=== PATIENT | male | born 1990 | race African-American/Black ===

== ENCOUNTER 2022-05-08 15:54 | Emergency (ER) | payer OTHER ==
[2022-05-08] MEDS ORDERED: IBUPROFEN 200 MG TAB PO ONE (16:35)
[2022-05-08] MEDS ORDERED: HYDROCODONE/APAP 5/325 MG TAB ONE (16:35)
[2022-05-08] MEDS ORDERED: IBUPROFEN 400 MG TAB ONE (16:35)
[2022-05-08] MEDS ORDERED: AMOX/K CLAV 875 MG TAB ONE (16:35)
[2022-05-08 17:36] VITALS: BP 142/83; TEMP 98.2; O2SAT 94
--- NOTE | 2022-05-20 16:55 | EDPHYS ---
Physician Documentation [facility] Name: Jemal Woody Jr Age: 31 yrs Sex: Male : 1990 Arrival Date: 05/08/2022 Time: 16:02 Bed IW2 Private MD: ED Physician Emre Trevino HPI: 05/08 17:40 This 31 yrs old Black Male presents to ER via Ambulatory with complaints of Toothache. snw 17:40 The patient presents with pain, swelling. The problem is located in the lower right snw third molar. Onset: The symptoms/episode began/occurred acutely. Duration: The symptoms are continuous, and are steadily getting worse. Associated signs and symptoms: The patient has no apparent associated signs or symptoms. Severity of symptoms: At their worst the symptoms were moderate. The patient has experienced a previous episode. The patient has not recently seen a physician. Historical: - Allergies: 16:12 No Known Allergies; kr3 - PMHx: 16:12 None; kr3 - PSHx: 16:12 None; kr3 - Immunization history:: Adult Immunizations not up to date. - Social history:: Smoking status: Reported history of juuling and/or vaping. ROS: 17:37 Constitutional: Negative for fever, chills, and weight loss, Eyes: Negative for injury, snw pain, redness, and discharge, Neck: Negative for injury, pain, and swelling, Cardiovascular: Negative for chest pain, palpitations, and edema, Respiratory: Negative for shortness of breath, cough, wheezing, and pleuritic chest pain, Abdomen/GI: Negative for abdominal pain, nausea, vomiting, diarrhea, and constipation, Back: Negative for injury and pain, : Negative for injury, bleeding, discharge, and swelling, MS/Extremity: Negative for injury and deformity, Skin: Negative for injury, rash, and discoloration, Neuro: Negative for headache, weakness, numbness, tingling, and seizure, Psych: Negative for depression, anxiety, suicide ideation, homicidal ideation, and hallucinations. 17:37 ENT: Positive for dental pain, of the lower right third molar. Exam: 17:36 Constitutional: This is a well developed, well nourished patient who is awake, alert, snw and in no acute distress. Head/Face: Normocephalic, atraumatic. Eyes: Pupils equal round and reactive to light, extra-ocular motions intact. Lids and lashes normal. Conjunctiva and sclera are non-icteric and not injected. Cornea within normal limits. Periorbital areas with no swelling, redness, or edema. ENT: Nares patent. No nasal discharge, no septal abnormalities noted. Oropharynx with no redness, swelling, or masses, exudates, or evidence of obstruction, uvula midline. Mucous membranes moist. scattered dental caries, right lower molar with tenderness, blackened center. Neck: Trachea midline, no thyromegaly or masses palpated, and no cervical lymphadenopathy. Supple, full range of motion without nuchal rigidity, or vertebral point tenderness. No Meningismus. Chest/axilla: Normal chest wall appearance and motion. Nontender with no deformity. No lesions are appreciated. Cardiovascular: Regular rate and rhythm with a normal S1 and S2. No gallops, murmurs, or rubs. Normal PMI, no JVD. No pulse deficits. Respiratory: Lungs have equal breath sounds bilaterally, clear to auscultation and percussion. No rales, rhonchi or wheezes noted. No increased work of breathing, no retractions or nasal flaring. Back: No spinal tenderness. No costovertebral tenderness. Full range of motion. Skin: Warm, dry with normal turgor. Normal color with no rashes, no lesions, and no evidence of cellulitis. MS/ Extremity: Pulses equal, no cyanosis. Neurovascular intact. Full, normal range of motion. Neuro: Awake and alert, GCS 15, oriented to person, place, time, and situation. Cranial nerves II-XII grossly intact. Motor strength 5/5 in all extremities. Sensory grossly intact. Cerebellar exam normal. Normal gait. Psych: Awake, alert, with orientation to person, place and time. Behavior, mood, and affect are within normal limits. Vital Signs: 16:06 BP 142 / 83; Pulse 111; Resp 18; Temp 98.2; Pulse Ox 94% on R/A; Weight 92.99 kg; kr3 Height 6 ft. 2 in. ; Pain 7/10; 16:06 Body Mass Index 26.32 (92.99 kg, 187.96 cm) kr3 16:06 Pain Scale: Adult kr3 MDM: 16:05 Patient medically screened. snw 17:38 Differential diagnosis: dental caries, dental abscess, gingivostomatitis. Data snw reviewed: vital signs, nurses notes. I considered the following discharge prescriptions or medication management in the emergency department Medications were administered in the Emergency Department. See MAR. Counseling: I had a detailed discussion with the patient and/or guardian regarding: the historical points, exam findings, and any diagnostic results supporting the discharge/admit diagnosis, the presence of at least one elevated blood pressure reading (>120/80) during this emergency department visit, the need for outpatient follow up, for definitive care, to return to the emergency department if symptoms worsen or persist or if there are any questions or concerns that arise at home. Response to treatment: the patient's symptoms have mildly improved after treatment. Special discussion: no vaping, blood pressure discussion. Administered Medications: 16:30 Drug: Amoxicillin-Clavulanate PO 875 mg Route: PO; kr3 16:37 Follow up: Response: No adverse reaction kr3 16:30 Drug: [place] PO 5 mg-325 mg 1 tabs Route: PO; kr3 16:37 Follow up: Response: No adverse reaction kr3 16:30 Drug: Ibuprofen PO 600 mg Route: PO; kr3 16:37 Follow up: Response: No adverse reaction kr3 Disposition: 19:07 Co-signature as Attending Physician, Emre Trevino MD I reviewed the patient's care rt provided by the Advanced Practice Provider and agree with the diagnosis and treatment plan. Disposition Summary: 05/08/22 16:25 Discharge Ordered Location: Home snw Condition: Stable snw Diagnosis - Dental root caries snw Followup: snw - With: Emergency Department - When: As needed - Reason: Worsening of condition Followup: snw - With: Private Physician - When: 2 - 3 days - Reason: Recheck today's complaints, Continuance of care, Re-evaluation by your physician Discharge Instructions: - Discharge Summary Sheet snw - Dental Caries, Adult snw - Dental Pain snw - Hypertension, Adult snw - Steps to Quit Smoking snw - Health Risks of Smoking snw - Diet and Dental Disease snw - Dental Extraction, Care After, [id number] snw - Form - Blood Pressure Record Sheet snw - How to Take Your Blood Pressure snw Forms: - Medication Reconciliation Form snw - Thank You Letter snw - Antibiotic Education snw - Prescription Opioid Use snw Prescriptions: - chlorhexidine gluconate 0.12 % Mucous Membrane Mouthwash - swish 15 milliliter by BUCCAL route 2 times per day; 480 milliliter; Refills: snw 0, Product Selection Permitted - Augmentin 500-125 mg Oral Tablet - take 1 tablet by ORAL route every 8 hours for 10 days; 30 tablet; Refills: 0, snw Product Selection Permitted - Mobic 7.5 mg Oral Tablet - take 1 tablet by ORAL route once daily take with food; 20 tablet; Refills: 0, snw Product Selection Permitted Signatures: Yodit Crooks FNP-C REMOVABLE PROSTHODONTIST-Csnw Leslie Zeng RN RN kr3 Emre Trevino MD MD rt
--- NOTE | 2022-05-20 16:55 | ER ---
Nurse's Notes [facility] Name: Jemal Woody Jr Age: 31 yrs Sex: Male : 1990 Arrival Date: 05/08/2022 Time: 16:02 Bed IW2 Private MD: Diagnosis: Dental root caries Presentation: 05/08 16:06 Chief complaint: Patient states: lower left side #32 is hurting, feels swollen, with kr3 throbbing pain that radiates up my head. Coronavirus screen: Vaccine status: Patient reports being unvaccinated. Ebola Screen: Patient denies travel to an Ebola-affected area in the 21 days before illness onset. Initial Sepsis Screen: Does the patient meet any 2 criteria? No. Patient's initial sepsis screen is negative. Does the patient have a suspected source of infection? No. Patient's initial sepsis screen is negative. Risk Assessment: Do you want to hurt yourself or someone else? Patient reports no desire to harm self or others. Onset of symptoms was May 08, 2022. 16:06 Method Of Arrival: Ambulatory kr3 16:06 Acuity: OLGA 4 kr3 Triage Assessment: 16:13 General: Appears in no apparent distress. uncomfortable, Behavior is calm, cooperative, kr3 appropriate for age. Pain: Complains of pain in mouth. EENT: Reports pain in right cheek lower right back tooth. Historical: - Allergies: 16:12 No Known Allergies; kr3 - PMHx: 16:12 None; kr3 - PSHx: 16:12 None; kr3 - Immunization history:: Adult Immunizations not up to date. - Social history:: Smoking status: Reported history of juuling and/or vaping. Screenin:36 [facility] ED Fall Risk Assessment (Adult) History of falling in the last 3 months, kr3 including since admission No falls in past 3 months (0 pts). Abuse screen: Denies threats or abuse. Nutritional screening: No deficits noted. Tuberculosis screening: No symptoms or risk factors identified. Vital Signs: 16:06 BP 142 / 83; Pulse 111; Resp 18; Temp 98.2; Pulse Ox 94% on R/A; Weight 92.99 kg; kr3 Height 6 ft. 2 in. ; Pain 7/10; 16:06 Body Mass Index 26.32 (92.99 kg, 187.96 cm) kr3 16:06 Pain Scale: Adult kr3 ED Course: 16:02 Patient arrived in ED. mr 16:05 Yodit Crooks [facility]C [facility]. snw 16:05 Emre Trevino MD is Attending Physician. snw 16:12 Triage completed. kr3 16:14 Arm band placed on right wrist. kr3 16:36 Patient has correct armband on for positive identification. kr3 16:36 No provider procedures requiring assistance completed. Patient did not have IV access kr3 during this emergency room visit. Administered Medications: 16:30 Drug: Amoxicillin-Clavulanate PO 875 mg Route: PO; kr3 16:37 Follow up: Response: No adverse reaction kr3 16:30 Drug: [place] PO 5 mg-325 mg 1 tabs Route: PO; kr3 16:37 Follow up: Response: No adverse reaction kr3 16:30 Drug: Ibuprofen PO 600 mg Route: PO; kr3 16:37 Follow up: Response: No adverse reaction kr3 Medication: 16:37 VIS not applicable for this client. kr3 Outcome: 16:25 Discharge ordered by . snw 16:36 Discharged to home ambulatory. kr3 16:36 Condition: stable 16:36 Discharge instructions given to patient, Instructed on discharge instructions, follow up and referral plans. medication usage, Demonstrated understanding of instructions, follow-up care, medications, Prescriptions given X 3. 16:37 Patient left the ED. kr3 Signatures: Yodit Crooks FNP-C PNEUMATIC SYSTEMS OPERATOR-Csnw Alayna RodriguesLeslie, RN RN kr3
== END 2022-05-08 16:37 | disposition home or self-care (01) ==
LOC: ER 15:54
DX: K02.7 Dental root caries (principal)
CPT/HCPCS: 99283

== ENCOUNTER 2022-07-12 03:06 | Emergency (ER) | payer OTHER ==
--- OUTSIDE RECORDS SUMMARY | 2022-07-12 03:09 | XMS REPORT | Continuity of Care Document ---
:1990 Author Organization [facility] t Address [address] [place]. [address] [place] [address] Care Team Providers Name Role Phone TJ Attending Clinician Unavailable TJ Admitting Clinician Unavailable Payers Payer Name Policy Type Policy Number Effective Date Expiration Date S adri [employer] [id number] 2022 [facility] ([facility] 00:00:00 Problems This patient has no known problems. Allergies, Adverse Reactions, Alerts This patient has no known allergies or adverse reactions. Medications This patient has no known medications. Procedures This patient has no known procedures. Encounters Start End Encounter Admission Attending Care Care Encounter Source Date/Time Date/Time Type Type Clinicians Facility Department ID 2022-05-11 2022-05-11 Outpatient ANTON العلي LAHEYDI [phone] [place] 00:00:00 00:00:[place] [id number] da [facility] h Program Results This patient has no known results.
--- NOTE | 2022-07-12 03:47 | EDPHYS ---
Physician Documentation [facility] Name: Jemal Woody Jr Age: 31 yrs Sex: Male : 1990 Arrival Date: 07/12/2022 Time: 03:06 Bed 18 Private MD: ED Physician Samy Elias HPI: 07/12 03:22 This 31 yrs old Black Male presents to ER via Unassigned with complaints of Low Back sp4 Pain, Breathing Difficulty. 03:50 31-year-old male presents with acute onset lower back pain on the right side with sp4 radiation down the right buttock. Patient states pain has been there since 5 days ago. There is no weakness, no numbness, and patient is ambulatory. . Historical: - Allergies: 03:31 No Known Allergies; pf1 - PMHx: 03:31 None; pf1 - PSHx: 03:31 None; pf1 - Immunization history:: Adult Immunizations up to date, Client reports having NOT received the Covid vaccine. Last tetanus immunization: < 5 years ago Flu vaccine is not up to date. - Social history:: Smoking status: Patient reports the use of cigarette tobacco products, smokes one pack cigarettes per day. Patient uses alcohol, occasionally. street drugs, marijuana. - Family history:: not pertinent. ROS: 03:50 Constitutional: Negative for fever, chills, and weight loss, Eyes: Negative for injury, sp4 pain, redness, and discharge, ENT: Negative for injury, pain, and discharge, Neck: Negative for injury, pain, and swelling, Cardiovascular: Negative for chest pain, palpitations, and edema, Respiratory: Negative for shortness of breath, cough, wheezing, and pleuritic chest pain, Abdomen/GI: Negative for abdominal pain, nausea, vomiting, diarrhea, and constipation, Back: Positive for right lower back pain with radiation to the right buttock, negative for acute injury, negative for weakness : Negative for injury, bleeding, discharge, and swelling, MS/Extremity: Negative for injury and deformity, Skin: Negative for injury, rash, and discoloration, Neuro: Negative for headache, weakness, numbness, tingling, and seizure, Psych: Negative for depression, anxiety, Allergy/Immunology: Negative for hives, rash, and allergies Endocrine: Negative for neck swelling, polydipsia, polyuria, polyphagia, and weight changes Hematologic/Lymphatic: Negative for swollen nodes, abnormal bleeding, and unusual bruising Exam: 03:50 Constitutional: This is a well developed, well nourished patient who is awake, alert, sp4 and in no acute distress. Head/Face: Normocephalic, atraumatic. Eyes: Pupils equal round and reactive to light, extra-ocular motions intact. Lids and lashes normal. Conjunctiva and sclera are not injected. Cornea within normal limits. Periorbital areas with no swelling, redness, or edema. ENT: Nares patent. No nasal discharge, no septal abnormalities noted. Tympanic membranes are normal and external auditory canals are clear. Oropharynx with no redness, swelling, or masses, exudates, or evidence of obstruction, uvula midline. Mucous membranes moist. Neck: Trachea midline, no thyromegaly or masses palpated, and no cervical lymphadenopathy. Supple, full range of motion without nuchal rigidity, or vertebral point tenderness. No Meningismus. Chest/axilla: Normal chest wall appearance and motion. Nontender with no deformity. No lesions are appreciated. Cardiovascular: Regular rate and rhythm with a normal S1 and S2. No gallops, murmurs, or rubs. Normal PMI, no JVD. No pulse deficits. Respiratory: Lungs have equal breath sounds bilaterally, clear to auscultation and percussion. No rales, rhonchi or wheezes noted. No increased work of breathing, no retractions or nasal flaring. Abdomen/GI: Soft, non-tender, with normal bowel sounds. No distension or tympany. No guarding or rebound. No evidence of tenderness throughout. Back: No spinal tenderness. No costovertebral tenderness. Skin: Warm, dry with normal turgor. Normal color with no rashes, no lesions, and no evidence of cellulitis. MS/ Extremity: Pulses equal, no cyanosis. Neurovascular intact. Full, normal range of motion. Normal bilateral peripheral pulses, normal ambulation, no limp Neuro: Awake and alert, GCS 15, oriented to person, place, time, and situation. Cranial nerves II-XII grossly intact. Motor strength 5/5 in all extremities. Sensory grossly intact. Psych: Awake, alert, with orientation to person, place and time. Behavior, mood, and affect are within normal limits Vital Signs: 03:28 BP 132 / 84; Pulse 94; Resp 16; Temp 97.9; Pulse Ox 97% on R/A; Weight 92.99 kg; Height pf1 6 ft. 2 in. ; Pain 3/10; 03:28 Body Mass Index 26.32 (92.99 kg, 187.96 cm) pf1 03:28 Pain Scale: Adult pf1 MDM: 03:45 Differential diagnosis: arthritis, strain, sciatica, contusion, Herniated disc. Data sp4 reviewed: vital signs, nurses notes. 03:47 Patient medically screened. sp4 03:50 ED course: CT was ordered by patient has declined CT. at this time patient has no sp4 neurologic impairment by examination and patient is stable for discharge home however he was advised to return in case he changes his mind about L-spine CT. . Administered Medications: No medications were administered Disposition Summary: 07/12/22 03:47 Discharge Ordered Location: Home sp4 Problem: new sp4 Symptoms: have improved sp4 Condition: Stable sp4 Diagnosis - Acute lower back sprain sp4 Followup: sp4 - With: Hernesto Perrin MD - When: 7 - 10 days - Reason: Re-evaluation by your physician Discharge Instructions: - Discharge Summary Sheet sp4 - Acute Back Pain, Adult sp4 Forms: - Thank You Letter sp4 - Work release form ah1 Prescriptions: - naproxen sodium 500 mg Oral Tablet, ER Multiphase 24 hr - take 1 tablet by ORAL route every 12 hours as needed for back pain; 30 tablet; sp4 Refills: 0, Product Selection Permitted Signatures: Dispatcher [employer] Wanda Cason RN RN pf1 Samy Elias MD MD sp4 Corrections: (The following items were deleted from the chart) 03:49 03:32 Spine Lumbar Wo Con+CT.RAD.BRZ ordered. EDMS ED
--- NOTE | 2022-07-12 03:47 | ER ---
Nurse's Notes [facility] Name: Jemal Woody Jr Age: 31 yrs Sex: Male : 1990 Arrival Date: 07/12/2022 Time: 03:06 Bed 18 Private MD: Diagnosis: Acute lower back sprain Presentation: 07/12 03:28 Chief complaint: Patient states: C/O right lower back pain of 3,onset Monday, worse pf1 since . Patient denies any back injury or any urinary problems. Coronavirus screen: Vaccine status: Patient reports being unvaccinated. Client denies travel out of the [place] in the last 14 days. At this time, the client does not indicate any symptoms associated with coronavirus-19. Ebola Screen: Patient negative for fever greater than or equal to 101.5 degrees Fahrenheit, and additional compatible Ebola Virus Disease symptoms. Initial Sepsis Screen: Does the patient meet any 2 criteria? No. Patient's initial sepsis screen is negative. Does the patient have a suspected source of infection? No. Patient's initial sepsis screen is negative. Risk Assessment: Do you want to hurt yourself or someone else? Patient reports no desire to harm self or others. 03:28 Method Of Arrival: Ambulatory pf1 03:28 Acuity: OLGA 3 pf1 Triage Assessment: 03:53 General: Appears in no apparent distress. Behavior is calm, cooperative. Respiratory: aa9 the patient has mild shortness of breath. Historical: - Allergies: 03:31 No Known Allergies; pf1 - PMHx: 03:31 None; pf1 - PSHx: 03:31 None; pf1 - Immunization history:: Adult Immunizations up to date, Client reports having NOT received the Covid vaccine. Last tetanus immunization: < 5 years ago Flu vaccine is not up to date. - Social history:: Smoking status: Patient reports the use of cigarette tobacco products, smokes one pack cigarettes per day. Patient uses alcohol, occasionally. street drugs, marijuana. - Family history:: not pertinent. Screenin:53 [facility] ED Fall Risk Assessment (Adult) History of falling in the last 3 months, aa9 including since admission No falls in past 3 months (0 pts) Confusion or Disorientation No (0 pts) Intoxicated or Sedated No (0 pts) Impaired Gait No (0 pts) Mobility Assist Device Used No (0 pt) Altered Elimination No (0 pt) Score/Fall Risk Level 0 - 2 = Low Risk Oriented to surroundings, Maintained a safe environment, Educated pt \\T\\ family on fall prevention, incl call for assistance when getting out of bed. Abuse screen: Denies threats or abuse. Denies injuries from another. Nutritional screening: No deficits noted. Tuberculosis screening: No symptoms or risk factors identified. Assessment: 03:50 Reassessment: pt discharged, state "I have to go to work, I just want to go now." aa9 notified provider. 03:53 Reassessment: Patient appears in no apparent distress at this time. Patient and/or aa9 family updated on plan of care and expected duration. Pain level reassessed. Patient is alert, oriented x 3, equal unlabored respirations, skin warm/dry/pink. Respiratory: Airway is patent Respiratory effort is even, unlabored. Vital Signs: 03:28 BP 132 / 84; Pulse 94; Resp 16; Temp 97.9; Pulse Ox 97% on R/A; Weight 92.99 kg; Height pf1 6 ft. 2 in. ; Pain 3/10; 03:28 Body Mass Index 26.32 (92.99 kg, 187.96 cm) pf1 03:28 Pain Scale: Adult pf1 ED Course: 03:09 Patient arrived in ED. ja2 03:22 Samy Elias MD is Attending Physician. sp4 03:25 Hafsa Billingsley, RN is Primary Nurse. aa9 03:31 Triage completed. pf1 03:40 Patient has correct armband on for positive identification. aa9 03:46 Hernesto Perrin MD is Referral Physician. sp4 03:55 No provider procedures requiring assistance completed. Patient did not have IV access aa9 during this emergency room visit. Administered Medications: No medications were administered Medication: 03:55 VIS not applicable for this client. aa9 Outcome: 03:47 Discharge ordered by . sp4 03:54 Discharged to home ambulatory. aa9 03:54 Condition: stable 03:54 Discharge instructions given to patient, Instructed on discharge instructions, follow up and referral plans. Demonstrated understanding of instructions, follow-up care, medications, Prescriptions given X 1. 03:55 Patient left the ED. aa9 Signatures: Radha Johnson Aylin RN RN aa9 Wanda Rodriguez RN RN pf1 Samy Elias MD MD sp4
[2022-07-12 04:38] VITALS: BP 132/84; TEMP 97.9; O2SAT 97
== END 2022-07-12 03:55 | disposition home or self-care (01) ==
LOC: ER 03:06
DX: S33.5XXA Sprain of ligaments of lumbar spine, initial encounter (principal); F17.210 Nicotine dependence, cigarettes, uncomplicated
CPT/HCPCS: 99283

== ENCOUNTER 2022-09-11 15:49 | Emergency (ER) | payer OTHER ==
--- OUTSIDE RECORDS SUMMARY | 2022-09-11 15:52 | XMS REPORT | Continuity of Care Document ---
:[address] [facility] t Address [address]. [address] [place] [address] Care Team Providers Name Role Phone TJ Attending Clinician Unavailable TJ Admitting Clinician Unavailable Payers Payer Name Policy Type Policy Number Effective Date Expiration Date S adri [employer] [id number] 2022 [facility] ([facility]) 00:00:00 Problems This patient has no known problems. Allergies, Adverse Reactions, Alerts This patient has no known allergies or adverse reactions. Medications This patient has no known medications. Procedures This patient has no known procedures. Encounters Start End Encounter Admission Attending Care Care Encounter Source Date/Time Date/Time Type Type Clinicians Facility Department ID 2022-05-11 2022-05-11 Outpatient ANTON العلي WAHEYDI [phone] [place] 00:00:00 00:00:[place] [id number] [place] [facility] [place] h Program Results This patient has no known results.
--- NOTE | 2022-09-11 16:20 | EDPHYS ---
Physician Documentation [facility] Name: Jemal Woody Jr Age: 31 yrs Sex: Male : 1990 Arrival Date: 09/11/2022 Time: 15:49 Bed IW1 Private MD: ED Physician Jeff Cisse HPI: 09/11 16:08 This 31 yrs old Black Male presents to ER via Ambulatory with complaints of Toothache. cp 16:08 The patient presents with pain. The problem is located in the left lower jaw and right cp lower jaw. Onset: The symptoms/episode began/occurred gradually, and became worse yesterday. Duration: The symptoms are intermittent. Associated signs and symptoms: Pertinent negatives: anorexia, dysphagia, fever, inability to eat, swelling, facial. Severity of symptoms: in the emergency department the symptoms have improved, mildly. Historical: - Allergies: 16:03 No Known Allergies; iw - Home Meds: 16:03 None [Active]; iw - PMHx: 16:03 None; iw - PSHx: 16:03 None; iw - Immunization history:: Adult Immunizations. - Social history:: Smoking status: Patient reports the use of cigarette tobacco products. ROS: 16:10 Constitutional: Negative for body aches, chills, fever, poor PO intake. cp 16:10 ENT: Positive for dental pain, Negative for drainage from ear(s), ear pain, sinus congestion, sinus pain, sore throat, difficulty swallowing, difficulty handling secretions. 16:10 Neck: Negative for pain with movement, pain at rest, stiffness. 16:10 Cardiovascular: Negative for chest pain, palpitations. 16:10 Respiratory: Negative for cough, shortness of breath, wheezing. 16:10 Abdomen/GI: Negative for abdominal pain, nausea and vomiting, diarrhea, constipation. 16:10 Neuro: Negative for altered mental status, dizziness, headache, numbness, weakness. 16:10 All other systems are negative. Exam: 16:15 Head/Face: Normocephalic, atraumatic. cp 16:15 Constitutional: The patient appears in no acute distress, alert, awake, non-toxic, well developed, well nourished. 16:15 Eyes: Periorbital structures: appear normal, Conjunctiva: normal, no exudate, no injection, Sclera: no appreciated abnormality, Lids and lashes: appear normal, bilaterally. 16:15 ENT: External ear(s): are unremarkable, Ear canal(s): are normal, TM's: dullness, bilaterally, Nose: is normal, Mouth: Lips: moist, Oral mucosa: pink and intact, moist, Posterior pharynx: Airway: no evidence of obstruction, patent, Tonsils: are normal in appearance, swelling, is not appreciated, erythema, is not appreciated, exudate, is not appreciated, Dental exam: abscess, is not appreciated, dental caries, that is severe, specifically in the upper right first molar (#3), lower left third molar (#17) and lower right third molar (#32), gum swelling, not appreciated, pain, that is moderate, specifically in the upper right first molar (#3), lower left third molar (#17) and lower right third molar (#32), Voice: is normal. 16:15 Neck: ROM/movement: is normal, is supple, without pain, no range of motions limitations, no meningismus, no nuchal rigidity. 16:15 Chest/axilla: Inspection: normal. Vital Signs: 16:04 BP 120 / 69; Pulse 60; Resp 16; Temp 98; Pulse Ox 98% on R/A; Weight 92.99 kg; Height 6 iw ft. 2 in. ; Pain 7/10; 16:04 Body Mass Index 26.32 (92.99 kg, 187.96 cm) iw 16:04 Pain Scale: Adult iw MDM: 16:06 Patient medically screened. matt 16:20 Data reviewed: vital signs, nurses notes. cp 16:20 Differential diagnosis: dental caries, dental abscess, pericoronitis, aphthous ulcers, cp gingivostomatitis. I considered the following discharge prescriptions or medication management in the emergency department Medications were administered in the Emergency Department. See MAR. Counseling: I had a detailed discussion with the patient and/or guardian regarding: the historical points, exam findings, and any diagnostic results supporting the discharge/admit diagnosis, the need for outpatient follow up, for definitive care, a dentist, to return to the emergency department if symptoms worsen or persist or if there are any questions or concerns that arise at home. Response to treatment: the patient's symptoms have mildly improved after treatment. Administered Medications: 16:28 Drug: Ibuprofen PO 800 mg Route: PO; iw 16:29 Follow up: Response: No adverse reaction iw 16:28 Drug: Acetaminophen PO 650 mg Route: PO; iw 16:29 Follow up: Response: No adverse reaction iw 16:28 Drug: Amoxicillin-Clavulanate PO 875 mg Route: PO; iw 16:45 Follow up: Response: No adverse reaction iw Disposition Summary: 09/11/22 16:20 Discharge Ordered Location: Home cp Problem: an ongoing problem cp Symptoms: have improved cp Condition: Stable cp Diagnosis - Disorder of teeth and supporting structures, unspecified cp Followup: cp - With: Bakari Fu DDS - When: 2 - 3 days - Reason: Recheck today's complaints Discharge Instructions: - Discharge Summary Sheet iw - Dental Pain cp Forms: - Work release form iw - Medication Reconciliation Form cp - Thank You Letter cp - Antibiotic Education cp - Prescription Opioid Use cp - Patient Portal Instructions cp Prescriptions: - Amoxicillin 875 mg Oral Tablet - take 1 tablet by ORAL route every 12 hours for 10 days; 20 tablet; Refills: 0, cp Product Selection Permitted - Ibuprofen 800 mg Oral Tablet - take 1 tablet by ORAL route every 8 hours As needed take with food; 30 tablet; cp Refills: 0, Product Selection Permitted Signatures: Jeff Cisse MD MD cha Williams, Irene, RN RN iw Jeff De La Paz PA PA cp
--- NOTE | 2022-09-11 16:20 | ER ---
Nurse's Notes [facility] Name: Jemal Woody Jr Age: 31 yrs Sex: Male : 1990 Arrival Date: 09/11/2022 Time: 15:49 Bed IW1 Private MD: Diagnosis: Disorder of teeth and supporting structures, unspecified Presentation: 09/11 16:03 Chief complaint: Patient states: i got a bad tooth ache on left lower wisdom tooth. iw Coronavirus screen: At this time, the client does not indicate any symptoms associated with coronavirus-19. Ebola Screen: Patient negative for fever greater than or equal to 101.5 degrees Fahrenheit, and additional compatible Ebola Virus Disease symptoms Patient denies exposure to infectious person. Patient denies travel to an Ebola-affected area in the 21 days before illness onset. No symptoms or risks identified at this time. Risk Assessment: Do you want to hurt yourself or someone else? Patient reports no desire to harm self or others. Onset of symptoms was September 11, 2022. 16:03 Method Of Arrival: Ambulatory iw 16:03 Acuity: OLGA 4 iw 16:29 Initial Sepsis Screen: Does the patient meet any 2 criteria? No. Patient's initial iw sepsis screen is negative. Does the patient have a suspected source of infection? No. Patient's initial sepsis screen is negative. Historical: - Allergies: 16:03 No Known Allergies; iw - Home Meds: 16:03 None [Active]; iw - PMHx: 16:03 None; iw - PSHx: 16:03 None; iw - Immunization history:: Adult Immunizations. - Social history:: Smoking status: Patient reports the use of cigarette tobacco products. Screenin:05 [facility] ED Fall Risk Assessment (Adult) Score/Fall Risk Level 0 - 2 = Low Risk. Abuse iw screen: Denies threats or abuse. Denies injuries from another. Nutritional screening: No deficits noted. Tuberculosis screening: No symptoms or risk factors identified. Assessment: 16:04 General: Appears in no apparent distress. Behavior is calm, cooperative. Pain: iw Complains of pain in left jaw. Neuro: Level of Consciousness is awake, alert, obeys commands, Oriented to person, place, time, situation, Moves all extremities. Full function. EENT: Reports pain in left jaw. 16:29 Reassessment: Patient appears in no apparent distress at this time. Patient and/or iw family updated on plan of care and expected duration. Pain level reassessed. Patient is alert, oriented x 3, equal unlabored respirations, skin warm/dry/pink. Vital Signs: 16:04 BP 120 / 69; Pulse 60; Resp 16; Temp 98; Pulse Ox 98% on R/A; Weight 92.99 kg; Height 6 iw ft. 2 in. ; Pain 7/10; 16:04 Body Mass Index 26.32 (92.99 kg, 187.96 cm) iw 16:04 Pain Scale: Adult iw ED Course: 15:50 Patient arrived in ED. ts1 15:59 Savannah Mathews FNP-C is PHCP. kb 15:59 Jeff Cisse MD is Attending Physician. kb 15:59 PHCP role handed off by Savannah Mathews FNP-C cp 15:59 Jeff De La Paz PA is PHCP. cp 16:03 Triage completed. iw 16:04 Arm band placed on. iw 16:05 Patient has correct armband on for positive identification. Provided Education on: pain iw . 16:05 No provider procedures requiring assistance completed. Patient did not have IV access iw during this emergency room visit. 16:19 Bakari Fu DDS is Referral Physician. cp 16:27 Niya Aggarwal, MIKI is Primary Nurse. iw Administered Medications: 16:28 Drug: Ibuprofen PO 800 mg Route: PO; iw 16:29 Follow up: Response: No adverse reaction iw 16:28 Drug: Acetaminophen PO 650 mg Route: PO; iw 16:29 Follow up: Response: No adverse reaction iw 16:28 Drug: Amoxicillin-Clavulanate PO 875 mg Route: PO; iw 16:45 Follow up: Response: No adverse reaction iw Medication: 16:05 VIS not applicable for this client. iw Outcome: 16:20 Discharge ordered by . cp 16:29 Discharged to home ambulatory. iw 16:29 Condition: good 16:29 Discharge instructions given to patient, Instructed on discharge instructions, follow up and referral plans. medication usage, Demonstrated understanding of instructions, follow-up care, medications, Prescriptions given X 2. 16:32 Patient left the ED. iw Signatures: Savannah Mathews FNP-C FNP-Ckb Williams, Irene, RN RN iw Jeff De La Paz PA PA cp Simpson, Tanya, PAS PAS ts1
[2022-09-11] MEDS ORDERED: ACETAMINOPHEN 325 MG TABLET ONE (16:31)
[2022-09-11] MEDS ORDERED: AMOX/K CLAV 875 MG TAB ONE (16:31)
[2022-09-11] MEDS ORDERED: IBUPROFEN 400 MG TAB ONE (16:31)
[2022-09-11 16:38] VITALS: BP 120/69; TEMP 98; O2SAT 98
== END 2022-09-11 16:32 | disposition home or self-care (01) ==
LOC: ER 15:49
DX: K08.89 Other specified disorders of teeth and supporting structures (principal); Z72.0 Tobacco use
CPT/HCPCS: 99283

== ENCOUNTER 2023-01-27 11:59 | Emergency (ER) | payer SELFPAY ==
--- OUTSIDE RECORDS SUMMARY | 2023-01-27 12:01 | XMS REPORT | Continuity of Care Document ---
:1990 Author Organization [facility] t Address [address] [place] [place] [address] Care Team Providers Name Role Phone TJ Attending Clinician Unavailable TJ Admitting Clinician Unavailable Payers Payer Name Policy Type Policy Number Effective Date Expiration Date Kellie rush [employer] [id number] 2022 [facility] 00:00:00 Problems This patient has no known problems. Allergies, Adverse Reactions, Alerts This patient has no known allergies or adverse reactions. Medications This patient has no known medications. Procedures This patient has no known procedures. Encounters Start End Encounter Admission Attending Care Care Encounter Source Date/Time Date/Time Type Type Clinicians Facility Department ID 2022-05-11 2022-05-11 Outpatient [facility] [id number] [place] 00:00:00 00:00:[place] [id number] da [facility] h Program Results This patient has no known results.
--- NOTE | 2023-01-27 12:44 | RAD REPORT ---
EXAM DESCRIPTION: CT - Head Brain Wo Cont - 01/27/2023 12:28 pm CLINICAL HISTORY: fall COMPARISON: No comparisons TECHNIQUE: All CT scans are performed using dose optimization technique as appropriate and may inclu de automated exposure control or mA/KV adjustment according to patient size. FINDINGS: No intracranial hemorrhage, hydrocephalus or extra-axial fluid collection.No areas of brai n edema or evidence of midline shift. The paranasal sinuses and mastoids are clear. The calvarium is intact. IMPRESSION: No acute intracranial abnormality.
--- NOTE | 2023-01-27 12:45 | RAD REPORT ---
EXAM DESCRIPTION: RAD - Hand Left 3 View - 01/27/2023 12:31 pm CLINICAL HISTORY: PAIN COMPARISON: No comparisons FINDINGS/IMPRESSION: No acute fracture. No malalignment. No significant focal degenerative changes.
--- NOTE | 2023-01-27 13:01 | EDPHYS ---
Physician Documentation [facility] Name: Jemal Woody Jr Age: 32 yrs Sex: Male : 1990 Arrival Date: 01/27/2023 Time: 11:59 Bed 18 Private MD: ED Physician Arnie Sorto HPI: 01/27 12:12 This 32 yrs old Black Male presents to ER via Ambulatory with complaints of Fall ms3 Injury, Headache. 12:12 32-year-old male with past medical history of asthma presents to the emergency ms3 department 2 days status post falling down the stairs with loss of consciousness. Patient states he is having 9/10 right frontal head pain is described as pressure and left thumb pain. Patient states his thumb pain is worse with movement of his thumb. Patient denies any alleviating factors. Historical: - Allergies: 12:10 No Known Allergies; hb - Home Meds: 12:10 None [Active]; hb - PMHx: 12:10 Asthma; hb - PSHx: 12:10 None; hb - Immunization history:: Adult Immunizations unknown. - Social history:: Smoking status: Patient reports the use of cigarette tobacco products, smokes one-half pack cigarettes per day. ROS: 12:12 Constitutional: Negative for fever, and chills. Neck: Negative for injury, pain, and ms3 swelling, Cardiovascular: Negative for chest pain, and palpitations. Respiratory: Negative for shortness of breath, cough, wheezing, and pleuritic chest pain, Abdomen/GI: Negative for abdominal pain, nausea, vomiting, diarrhea, and constipation, 12:12 MS/extremity: Positive for Left thumb pain, left thumb swelling, 12:12 Neuro: Positive for Headache, 12:12 All other systems are negative, Exam: 12:12 Constitutional: This is a well developed, well nourished patient who is awake, alert, ms3 and in no acute distress. Head/Face: Normocephalic, atraumatic. Eyes: Pupils equal round and reactive to light, extra-ocular motions intact. Lids and lashes normal. Conjunctiva and sclera are non-icteric and not injected. Periorbital areas with no swelling, redness, or edema. Neck: Trachea midline, no cervical lymphadenopathy. Supple, full range of motion without nuchal rigidity, or vertebral point tenderness. No Meningismus. Chest/axilla: Normal chest wall appearance and motion. Nontender with no deformity. Cardiovascular: Regular rate and rhythm with a normal S1 and S2. No gallops, murmurs, or rubs. Normal PMI, no JVD. No pulse deficits. Respiratory: Lungs have equal breath sounds bilaterally, clear to auscultation and percussion. No rales, rhonchi or wheezes noted. No increased work of breathing, no retractions or nasal flaring. Abdomen/GI: Soft, non-tender, with normal bowel sounds. No distension or tympany. No guarding or rebound. No evidence of tenderness throughout. Skin: Warm, dry with normal turgor. Normal color with no rashes, no lesions, and no evidence of cellulitis. 12:12 Musculoskeletal/extremity: Left thumb with ecchymosis, swelling, pain with active and passive range of motion.. Vital Signs: 12:08 BP 166 / 97; Pulse 80; Resp 16; Temp 98.1; Pulse Ox 97% on R/A; Weight 83.91 kg; Height hb 6 ft. 2 in. ; Pain 9/10; 12:08 Body Mass Index 23.75 (83.91 kg, 187.96 cm) hb 12:08 Pain Scale: Adult hb MDM: 12:12 Patient medically screened. ms3 12:14 Differential diagnosis: abrasion, closed head injury, contusion, fracture, sprain, ms3 strain. 13:00 Data reviewed: vital signs, nurses notes, radiologic studies, CT scan, plain films. ms3 Care significantly affected by the following Social Determinants of Health: Poor access to healthcare and/or lack of insurance. Counseling: I had a detailed discussion with the patient and/or guardian regarding the historical points, exam findings, and any diagnostic results supporting the discharge/admit diagnosis, radiology results, the need for outpatient follow up, to return to the emergency department if symptoms worsen or persist or if there are any questions or concerns that arise at home. Special discussion: I discussed with the patient/guardian in detail that at this point there is no indication for admission to the hospital. It is understood, however, that if the symptoms persist or worsen the patient needs to return immediately for re-evaluation. ED course: Discussed CT and x-ray findings with patient. Discussed necessity to follow-up with orthopedics in 2 to 3 days for left thumb. Patient understands and agrees with plan. Discussed ibuprofen prescription and patient declines. Discussed with patient placement of thumb and thumb spica splint. All questions were answered. Return precautions discussed include worsening symptoms, or any other concerns. 12 12:12 Order name: CT Head Brain wo Cont; Complete Time: 12:56 ms3 01/27 12:12 Order name: Hand Left 3 View XRAY; Complete Time: 12:56 ms3 Administered Medications: No medications were administered Disposition Summary: 01/27/23 13:00 Discharge Ordered Notes: Location: Home ms3 Condition: Stable ms3 Diagnosis - Acute post-traumatic headache ms3 - Fall (on) (from) other stairs and steps ms3 - Contusion of left thumb without damage to nail ms3 Followup: ms3 - With: Chet Pedro MD - When: 2 - 3 days - Reason: Recheck today's complaints Discharge Instructions: - Discharge Summary Sheet ms3 - Musculoskeletal Pain ms3 Forms: - Medication Reconciliation Form ms3 - Thank You Letter ms3 - Antibiotic Education ms3 - Prescription Opioid Use ms3 - Patient Portal Instructions ms3 - Leadership Thank You Letter ms3 Signatures: Dispatcher [employer] Angelita Kuo RN RN Arnie Haskins DO DO ms3
--- NOTE | 2023-01-27 13:01 | ER ---
Nurse's Notes [facility] Name: Jemal Woody Jr Age: 32 yrs Sex: Male : 1990 Arrival Date: 01/27/2023 Time: 11:59 Bed 18 Private MD: Diagnosis: Acute post-traumatic headache;Fall (on) (from) other stairs and steps;Contusion of left thumb without damage to nail Presentation: 01/27 12:08 Chief complaint: Fell down the stairs from second floor to first floor 2 nights ago, + hb LOC, c/o left hand pain, headache, and dizziness. Coronavirus screen: At this time, the client does not indicate any symptoms associated with coronavirus-19. Ebola Screen: No symptoms or risks identified at this time. Initial Sepsis Screen: Does the patient meet any 2 criteria? No. Patient's initial sepsis screen is negative. Does the patient have a suspected source of infection? No. Patient's initial sepsis screen is negative. Risk Assessment: Do you want to hurt yourself or someone else? Patient reports no desire to harm self or others. Onset of symptoms was January 25, 2023. 12:08 Method Of Arrival: Ambulatory hb 12:08 Acuity: OLGA 3 hb Historical: - Allergies: 12:10 No Known Allergies; hb - Home Meds: 12:10 None [Active]; hb - PMHx: 12:10 Asthma; hb - PSHx: 12:10 None; hb - Immunization history:: Adult Immunizations unknown. - Social history:: Smoking status: Patient reports the use of cigarette tobacco products, smokes one-half pack cigarettes per day. Screenin:15 [facility] ED Fall Risk Assessment (Adult) Score/Fall Risk Level 0 - 2 = Low Risk. Abuse eh3 screen: Denies threats or abuse. Denies injuries from another. Nutritional screening: No deficits noted. Tuberculosis screening: No symptoms or risk factors identified. Assessment: 12:15 General: Appears in no apparent distress. uncomfortable, Behavior is calm, cooperative, eh3 appropriate for age. Pain: Complains of pain in neck. Neuro: Level of Consciousness is awake, alert, obeys commands, Oriented to person, place, time, situation, Pupils are PERRLA. Cardiovascular: Capillary refill < 3 seconds Patient's skin is warm and dry. Respiratory: Airway is patent Respiratory effort is even, unlabored, Respiratory pattern is regular, symmetrical. GI: Abdomen is round non-distended. Derm: Skin is pink, warm \T\ dry. Musculoskeletal: Circulation, motion, and sensation intact. 12:55 Reassessment: Pt walked out of hospital after speaking with provider. Friend states pt eh3 does not want the splint. Vital Signs: 12:08 BP 166 / 97; Pulse 80; Resp 16; Temp 98.1; Pulse Ox 97% on R/A; Weight 83.91 kg; Height hb 6 ft. 2 in. ; Pain 9/10; 12:08 Body Mass Index 23.75 (83.91 kg, 187.96 cm) hb 12:08 Pain Scale: Adult hb ED Course: 12:02 Patient arrived in ED. mr 12:04 Arnie Sorto DO is Attending Physician. ms3 12:10 Triage completed. hb 12:10 Arm band placed on. 12:12 Emma Cantu, RN is Primary Nurse. 3 12:15 Patient has correct armband on for positive identification. Bed in low position. Call eh3 light in reach. Side rails up X2. Provided Education on: use of call boland. teletypesetter monitor on. Pulse ox on. 12:29 CT Head Brain wo Cont In Process Unspecified. EDMS 12:33 Hand Left 3 View XRAY In Process Unspecified. EDMS 12:59 Chet Pedro MD is Referral Physician. ms3 13:00 Patient did not have IV access during this emergency room visit. eh3 13:00 Assist provider with bone marrow aspiration. eh3 Administered Medications: No medications were administered Outcome: 13:00 Discharge ordered by . ms3 13:00 Discharged to home ambulatory, 3 13:00 Condition: stable 13:00 Discharge instructions given to patient, friend, Instructed on discharge instructions, follow up and referral plans. Demonstrated understanding of instructions, follow-up care, 13:02 Patient left the ED. ld1 Signatures: Dispatcher [employer] Alayna Shi, Curt Reg De LeonAngelita, RN MIKI Arnie Sorto DO DO ms3 Michelle Sorto RN RN ld1 Emma Cantu, MIKI RN [facility]
[2023-01-27 13:07] VITALS: BP 166/97; TEMP 98.1; O2SAT 97
== END 2023-01-27 13:02 | disposition home or self-care (01) ==
LOC: ER 11:59
DX: G44.319 Acute post-traumatic headache, not intractable (principal); S60.012A Contusion of left thumb without damage to nail, initial encounter; W10.8XXA Fall (on) (from) other stairs and steps, initial encounter
CPT/HCPCS: 70450; 99285